=== PATIENT | female | born 1935 | race Caucasian/White ===

== ENCOUNTER 2018-08-19 16:50 | Emergency (ER) | payer MEDICARE ==
[2018-08-19 17:23] LABS: #Eosinphils 0.1 thou/uL (0.0-0.7); #Lymphocytes 1.1 thou/uL (1.20-3.40); #Monocytes 0.7 thou/uL (0.11-0.59); #Neutrophils 6.8 thou/uL (1.40-6.50); %Basophils 0.3 % (0.0-1.0); %Eosinophils 1.4 % (0.0-10.0); %Lymphocytes 12.7 % (21.0-51.0); %Monocytes 8.1 % (0.0-10.0); %Neutrophils 77.4 % (42.0-75.0); Hemoglobin 13.9 g/dL (12.0-16.0); Mean Corpuscular HGB CONC 31.8 g/dL (32.0-36.0); Mean Corpuscular Hemoglobin 28.2 pg (27.0-31.0); Mean Corpuscular Volume 88.8 fL (78.0-98.0); Platelet Count 281 thou/uL (130-400); RBC Distribution Width 12.2 % (11.5-14.5); Red Blood Cell (RBC) Count 4.93 mill/uL (4.20-5.40); White Blood Cell (WBC) Count 8.8 thou/uL (4.8-10.8)
[2018-08-19 17:45] LABS: ALT (SGPT) 48 U/L (8-55); AST (SGOT) 51 U/L (5-34); Albumin 4.3 g/dL (3.4-4.8); Alkaline Phosphatase 81 U/L (40-150); Anion Gap 15 mmol/L (10-20); BUN (Urea Nitrogen) 21 mg/dL (9.8-20.1); Bilirubin, Total 0.5 mg/dL (0.2-1.2); Calc. Creatinine Clearance 0 mL/min (70-130); Carbon Dioxide 26 mmol/L (23-31); Chloride 103 mmol/L (98-107); Estimated GFR-MDRD 69; Globulin 3.3 g/dL (2.4-3.5); Glucose 105 mg/dL (83-110); Potassium 3.9 mmol/L (3.5-5.1); Protein, Total 7.6 g/dL (6.0-8.3); Sodium 140 mmol/L (136-145)
--- NOTE | 2018-08-19 17:46 | RAD ---
AP VIEW CHEST: 08/19/18 HISTORY: Fall with back pain and chest pain. AP view chest is obtained. Calcification of the aorta is seen. Lower thoracic vertebroplasty changes seen. No evidence of acute intrathoracic abnormality seen. No evidence of effusions, pneumonia or pneumotho rax seen. IMPRESSION: Calcification of the aorta, otherwise unremarkable AP view chest. POS: [facility]
[2018-08-19 17:49] LABS: CKMB 1.8 ng/mL (0-6.6); Troponin I Less than 0.010 ng/mL (< 0.028)
--- NOTE | 2018-08-19 18:14 | RAD ---
THREE VIEWS LUMBAR SPINE: 08/19/18 HISTORY: Trauma, back pain. AP, lateral and cone down views of the lumbar spine obtained. Images demonstrate vertebroplasty changes seen at the L 1 vertebral level. There is approximately 50% height loss of the L1 height. Osteoporosis of the lumbar spine seen. There is also some partial collapse of the superior end plate of the L4 vertebral body. Age of this is indeterminate. No significant evidence of retropulsed fragments or abnormalities seen extending into the spinal rl l. IMPRESSION: 1. L1 vertebroplasty changes and height loss. 2. Superior end plate L4 partial collapse, indeterminate age. 3. Osteoporosis. POS: [facility]
--- NOTE | 2018-08-19 18:22 | CT ---
CT BRAIN 08/19/18 HISTORY: Fall with head injury. Noncontrast enhanced CT images of the brain obtained. Brain and bone windows obtained. CT images of the brain demonstrate diffuse cortical atrophy and deep white matter ischemic changes. T here is an area of hyperdensity just to the right of the posterior falx seen on axial images #11. Thi s area of hyperdensity may represent a posterior fossa meningioma. Intracranial hemorrhage is less li jonah. Correlation with pre and postcontrast enhanced MRI images of the brain may be of use. IMPRESSION: 1. Cortical atrophy. 2. Possible posterior fossa dural based meningioma versus area of hemorrhage. 3. No associated calvarial fracture seen. POS: [facility]
--- NOTE | 2018-08-19 19:14 | CT ---
CT CERVICAL SPINE 08/19/18 HISTORY: Trauma, neck pain. Axial images are obtained with coronal and sagittal reconstructions. CT images demonstrate a marked enlarged left thyroid lobe compatible with a large left thyroid mass. Correlate with elective ENT consultation and thyroid evaluation. There is disc space height loss with anterior and posterior osteophytes at C3-4, C4-5, C5-6 and C6-7. This is compatible with changes of spondylosis. Osteophytes seen extending into the neural foramen a t all of these levels as well. No significant evidence of acute cervical spine fracture seen. IMPRESSION: 1. Multilevel mid cervical changes of spondylosis with central and neural foraminal narrowing. N o evidence of acute bony lesions seen. 2. Incidentally noted bilateral carotid bulb vascular calcifications also seen. 3. Enlarged left thyroid lesion. POS: [facility]
--- NOTE | 2018-08-19 19:24 | CT ---
NONCONTRAST ENHANCED CT IMAGES OF LUMBAR SPINE 08/19/18 HISTORY: Ground level fall. Axial images are obtained with coronal and sagittal reconstructions. Images demonstrate an old compression fracture with vertebroplasty changes seen at the L1 level. T12-L1: Unremarkable. L1-2: There is mild facet and ligamentum flavum hypertrophy. No significant degree of central stenosi s seen. L2-3: There is mild to moderate bilateral facet and ligamentum flavum hypertrophy. Mild central and l ateral recess stenosis seen. The neural foramen are patent. No definite evidence of lumbar spine acute fracture seen. L3-4: There is a mild broad based disc bulge with bilateral facet and ligamentum flavum hypertrophy r esulting in moderate degree of central and lateral recess stenosis. The neural foramen are patent. L4-5: There is a broad based disc protrusion with bilateral facet hypertrophy and ligamentum flavum h ypertrophy resulting in moderate degree of central and lateral recess stenosis. The neural foramen ar e patent. L5-S1: Bilateral facet hypertrophy is seen. The central canal and neural foramen are patent. Incidentally noted bilateral hypodense areas seen in both kidneys most compatible with renal cysts. T here is some calcifications in the right renal cyst. This suggests that the right renal cysts are not simple. There also appears to be an area of a lobular density in the upper pole of the left kidney. This may represent an exophytic hyperdense cyst versus lobular mass. Correlate with pre and postcontr ast enhanced CT images of kidneys electively to further evaluate these renal lesions. IMPRESSION: No acute evidence of lumbar spine fractures seen. POS: [facility]
[2018-08-19] MEDS ORDERED: Morphine 4 MG/ML VIAL ONE (20:02)
[2018-08-19] MEDS ORDERED: Ondansetron PF 4 MG/2 ML Vial ONE (20:02)
[2018-08-19 20:49] LABS: Bilirubin Negative (Negative); Blood, Urine Negative (Negative); Clarity CLOUDY (Clear); Glucose, Urine (Dipstick) Negative (Negative); Leukocyte Moderate (Negative); Nitrite Negative (Negative); Protein, Urine (Dipstick) Trace mg/dL (Neg-Trace); Specific Gravity, Urine 1.042 (1.002-1.036); pH, Urine 5.5 (5.0-9.0)
[2018-08-19 20:51] LABS: Bacteria/HPF None Seen HPF (None Seen); Pathc Cast-AUWi Flag 2.18 (0-2.49); Squamous Epithelial 21-50 HPF (0-3)
[2018-08-19 20:58] LABS: Hyaline Casts/LPF 0-3 HYALINE CAST LPF (0-3 Hyaline)
[2018-08-19] MEDS ORDERED: cefTRIAXone\\ROCEPHIN 1 GM VIAL ONE (21:04)
== END 2018-08-19 22:47 ==
LOC: ERS 16:50
DX: S32.009A Unspecified fracture of unspecified lumbar vertebra, initial encounter for closed fracture (principal); D32.9 Benign neoplasm of meninges, unspecified; N39.0 Urinary tract infection, site not specified; Z79.899 Other long term (current) drug therapy; W19.XXXA Unspecified fall, initial encounter
CPT/HCPCS: 70450; 71045; 72100; 72125; 72131; 80053; 81003; 81015; 82553; 84484; 85025; 87086; 93005; 96361; 96365; 96375; J0696; J2270; J2405

== ENCOUNTER 2019-12-10 10:12 | Day surgery (SDC) | payer MEDICARE ==
[2019-12-07 09:36] VITALS: BMI 23.6
[2019-12-10] MEDS ORDERED: Magnevist 469MG/ML 20 ML VIAL ONE (11:12)
[2019-12-10] MEDS ORDERED: Propofol 500 MG/50 ML VIAL ONE (13:06)
--- NOTE | 2019-12-10 14:17 | MRI ---
EXAM: MRI of the brain without and with contrast HISTORY: Meningioma; dementia COMPARISON: CT brain 08/19/2018 TECHNIQUE: Multiplanar multisequence MR images were obtained of the brain without and with IV contras t. FINDINGS: There are scattered foci of high T2/FLAIR signal in the subcortical and periventricular white matter, likely secondary to small vessel ischemic disease. Diffuse cerebral atrophy is seen. No restricted diffusion. There is a stable homogeneously enhancing mass just beneath the tentorium along the right cerebellar hemisphere measuring 1.9 cm in greatest dimension. No hydronephrosis. No extra-axial fluid collection or intracranial hemorrhage. The expected flow voids are present. Corpus callosum, pituitary, and craniocervical junction are within normal limits. The calvarium and overlying soft tissues are unremarkable. The paranasal sinuses and mastoid air cells are well aerated. IMPRESSION: 1. Stable right posterior fossa hemangioma 2. Cerebral atrophy and small vessel ischemic disease.
== END 2019-12-10 16:40 | disposition home or self-care (01) ==
LOC: SDC/OP 10:12
PROVIDERS: ATTEND Internal Medicine
DX: D32.0 Benign neoplasm of cerebral meninges (principal); F03.90 Unspecified dementia, unspecified severity, without behavioral disturbance, psychotic disturbance, mood disturbance, and anxiety; G89.29 Other chronic pain; M54.2 Cervicalgia; M54.9 Dorsalgia, unspecified; Z79.899 Other long term (current) drug therapy; Z88.2 Allergy status to sulfonamides
CPT/HCPCS: 70553; 82565; J2704